=== PATIENT | female | born 1975 | race Caucasian/White ===

== ENCOUNTER 2022-02-12 08:01 | Outpatient (CLI) | payer OTHER ==
[~2022-02-12 08:01] MED LIST: GADOBUTROL 7.5 MMOL/7.5 ML VIAL ONE
[2022-02-12] MEDS ORDERED: GADOBUTROL 7.5 MMOL/7.5 ML VIAL IVP ONE (16:59)
--- NOTE | 2022-02-13 10:59 | MRI Report ---
PROCEDURE: Pelvis W/WO INDICATIONS: DISORDER OF UTERUS. Abnormal uterine bleeding. CONTRAST: IV CONTRAST: Gadavist ml: 6.2 TECHNIQUE: Coronal ultra fast SE, sagittal breath-hold T2 FSE; axial T1 FSE with and without fat saturation thro ugh the pelvis. Optional long- and short-axis uterine nonbreath-hold T2 FSE through the uterus. Sag ittal or axial dynamic ultra fast GE during administration of contrast. Post-contrast axial or coron al ultra fast GE / 2-D spoiled GE with fat saturation from the iliac crests to the symphysis. Option al diffusion weighted imaging and ADC may be performed. COMPARISON: None available. FINDINGS: Image quality: Excellent. Uterus: Uterus is anteverted and normal in size measuring 9.4 x 5.9 x 4.9 cm. Anterior mid subserosa l fibroid is suspected measuring 1.5 cm, (7/4). Endometrium is prominent measuring 1.4 cm. Junction al zone is normal in thickness at 12 mm or less. Adnexa: Both ovaries are normal in size, without suspicious cystic or solid lesions. Right ovarian h omogeneous T2 hyperintense cysts measuring 2.1 cm; and 0.9 cm. No suspicious enhancement. Urinary system: Bladder wall is normal in thickness. Distal ureters are non distended. Urethra dom ears normal in morphology. Nodes and vessels: No pelvic or inguinal adenopathy by size criteria. Iliac vessels are normal in s ize. Bowel and peritoneum: No pathologic free pelvic fluid. Inferior colon and small bowel loops are nor mal in caliber. Soft tissues: No inguinal hernias. No findings of pelvic floor incompetence in the absence of provo cation. Bones: Marrow demonstrates normal overall signal. Small right sacral Tarlov cysts. IMPRESSION: 1. Endometrium measures 1.4 cm and is prominent. 2. Suspect small anterior mid subserosal uterine fibroid measuring 1.5 cm. 3. Small benign right ovarian cyst. Reviewed by: Ozzie Huerta MD on 02/13/2022 10:57 AM PDT Approved by: Ozzie Huerta MD on 02/13/2022 10:57 AM PDT Station ID: [id number]
== END 2022-02-12 08:02 | disposition home or self-care (01) ==
LOC: DI 08:01
PROVIDERS: ATTEND Student in an Organized Health Care Education/Training Program
DX: N85.00 Endometrial hyperplasia, unspecified (principal); N83.201 Unspecified ovarian cyst, right side
CPT/HCPCS: 72197; A9585

== ENCOUNTER 2022-03-12 08:12 | Emergency (ER) | payer OTHER ==
[2022-03-12 08:23] VITALS: BP 129/80
--- NOTE | 2022-03-12 08:24 | ED Physician Documentation ---
PD HPI LOWER EXT INJURY - Stated complaint Stated Complaint: LT KNEE PX - Chief complaint Chief Complaint: Ext Problem - History obtained from History obtained from: Patient - History of Present Illness PD HPI LOW EXT INJURY LOCATION: Left, Knee Type of injury: No: Fall, Blunt / blow Timing - onset: Today Timing - details: Abrupt onset, Still present (She states she was fast walking for exercise and felt the abrupt onset of pain and giving out of her left knee along the medial aspect. Pain with walking now. No locking. Feels similar to prior meniscal injuries. Has also had ACL repair twice.) Worsened by: Moving, Palpating (medial aspect) Associated symptoms: Swelling (mild). No: Weakness, Numbness Similar symptoms before: Diagnosis (meniscal injuries in the past. ACL as well but felt different.) Recently seen: Not recently seen (prior Ortho surgeries were several years ago.) Review of Systems Skin: denies: Rash, Abrasion (s) Neurologic: denies: Focal weakness, Numbness PD PAST MEDICAL HISTORY - Past Medical History Cardiovascular: None Respiratory: None Musculoskeletal: None, Other (prior knee surgeries) - Present Medications Home Medications: Ambulatory Orders Medication Instructions Recorded Confirmed HYDROcod/ACETAM 5/325 [Sharon 5/325] 1 ea PO Q6H PRN #14 tablet 03/12/22 Ibuprofen [Motrin] 600 mg PO TID PRN #25 tab 03/12/22 Levothyroxine Sodium [Synthroid] 88 mcg PO DAILY 03/12/22 03/12/22 - Allergies Allergies/Adverse Reactions: Allergies Allergy/AdvReac Type Severity Reaction Status Date / Time No Known Drug Allergies Allergy Verified 03/12/22 08:19 PD ED PE NORMAL - Vitals Vital signs reviewed: Yes - General General: Alert and oriented X 3, No acute distress, Well developed/nourished - Derm Derm: Normal color, Warm and dry - Extremities Extremities: No calf tenderness / cord, Other (Left knee shows tenderness over the anterior aspect just suprapatellar but also along the medial joint line. There is no shifting of the tenderness some more suggestive of MCL. Pain with valgus stress. Some pain also with modified Apley. No clicking or popping. Good ROM passive without lock) - Neuro Neuro: Alert and oriented X 3, No motor deficit, No sensory deficit, Normal speech Results - Vitals Vitals: Vital Signs - 24 hr 03/12/22 08:20 Temperature 37.2 C Heart Rate 74 Respiratory 18 Rate Blood Pressure 129/80 O2 Saturation 99 Oxygen O2 Source Room air - Rads (name of study) left knee Radiology: Prelim report reviewed (arthritic and postsurgical changes. Small calcification back of knee could represent small loose body. ), See rad report PD MEDICAL DECISION MAKING - ED course Complexity details: reviewed results, considered differential (likely MCL strain but also consider medial meniscal injury. Loose body considered as well. Will give knee brace and crutches. To follow up with Ortho. ), d/w patient Departure - Departure Disposition: Home, Self Care Clinical Impression: Acute knee pain Qualifiers: Laterality: left Qualified Code(s): M25.562 - Pain in left knee Condition: Stable Record reviewed to determine appropriate education?: Yes Instructions: ED Meniscal Injury Knee Poss Follow-Up: GREGOR RAI MD [Primary Care Provider] - David Choi MD [Provider Admit Priv/Credential] - [facility] [Provider Group] Prescriptions: Ibuprofen [Motrin] 600 mg PO TID PRN #25 tab PRN Reason: Pain HYDROcod/ACETAM 5/325 [Sharon 5/325] 1 ea PO Q6H PRN #14 tablet PRN Reason: Pain Comments: The hardware from your prior surgeries appears in place. You do have spurs and arthritic changes in through the knee. No obvious loose bodies. I presume your symptoms sound likely to be a meniscal injury with some looseness. See how this improves over the next week or so with hinged knee brace and crutches for limited to no weightbearing. Ibuprofen 3 times a day with food. Add Tylenol or hydrocodone as needed for worse pains. I transmitted your prescriptions to the [facility]. Follow-up with your primary care or orthopedics, call today for an appointment for about a week from now. Return if worsening. My narcotic instructions I am prescribing a short course of narcotic pain medication for you. These are potentially dangerous and addictive medications that should be used carefully. These medications may constipate you. Take an gfng-exl-[id number] stool softener such as docusate twice daily with plenty of water while taking these medications. If you go 24 hours without a bowel movement, take [id number] MiraLAX, per package instructions. Do not drink or drive while taking these medications. If you received narcotic or sedating medications while in the emergency department do not drive for 24 hours. Store this medication in a safe, secure place and out of reach of children. It is a violation of federal law to give or sell this medication to another person or to use in a manner other than prescribed. The ED will not refill narcotic prescriptions, including prescriptions lost or stolen. You can dispose of unwanted medications at the [facility]'s office or at several pharmacies such as [facility]. Forms: Activity restrictions Discharge Date/Time: 03/12/22 10:33
[2022-03-12] MEDS ORDERED: IBUPROFEN 600 MG TABLET PO STA (08:39)
[2022-03-12] MEDS ORDERED: ACETAMINOPHEN 325 MG TABLET PO STA (08:39)
--- NOTE | 2022-03-12 09:23 | XRAY Report ---
PROCEDURE: Knee 4 View LT INDICATIONS: Trauma TECHNIQUE: 3 views of the left knee(s) were acquired. COMPARISON: None. FINDINGS: Bones: No fractures or dislocations. No suspicious bony lesions. There is a screw within the dista l femur as well as a tendon anchor at the lateral femoral condyle. Moderate tricompartmental periarti cular osteophyte formation is present. Soft tissues: No joint effusion. Amorphous calcification within the soft tissues of the posterior as pect of the knee joint is present. IMPRESSION: 1. Postsurgical sequelae. 2. Calcification at the posterior aspect of the knee, possibly indicating vascular calcification, or intra-articular loose body, which could be further assessed with MRI, if clinically indicated. 3. Osteoarthritis. 4. No acute fracture. No osseous lesion. If symptoms and/or clinical suspicion for pathology continue , further assessment with repeat plain films, or advanced imaging (e.g., CT, MRI, or bone scan) is re commended for further assessment. Reviewed by: Rimma Tolliver MD on 03/12/2022 9:22 AM PDT Approved by: Rimma Tolliver MD on 03/12/2022 9:22 AM PDT Station ID: [id number]
== END 2022-03-12 10:33 | disposition home or self-care (01) ==
LOC: ED 08:12
DX: M25.562 Pain in left knee (principal)
CPT/HCPCS: 73564; 99282; 99283; A9270

== ENCOUNTER 2022-03-27 08:00 | Outpatient (CLI) | payer OTHER ==
--- NOTE | 2022-03-27 16:06 | XRAY Report ---
PROCEDURE: Knee 3 View LT INDICATIONS: LEFT KNEE PAIN TECHNIQUE: 3 views of the left knee and one view of the right knee were acquired. COMPARISON: Left knee radiographs 03/12/2022. FINDINGS: Bones: Postsurgical changes are seen from anterior cruciate ligament reconstruction with an addition al metallic screw at the lateral femoral metaphysis. No acute fractures or dislocations. No suspicio us bony lesions. Small likely heterotopic ossification again seen at the lateral femoral metaphysis. Tricompartmental marginal osteophytes and mild joint space narrowing are seen. Soft tissues: Small joint effusion. Nonspecific calcification is seen projecting over the posterior m edial knee, possibly within a medial popliteal cyst. IMPRESSION: 1.Stable postsurgical changes in the left knee. No acute osseous abnormality. MRI could be performed for further evaluation if symptoms persist or there is continued clinical concern. 2.Mild to moderate compartment osteoarthrosis. Reviewed by: Clive Singh MD on 03/27/2022 4:05 PM PDT Approved by: Clive Singh MD on 03/27/2022 4:05 PM PDT Station ID: [id number]
== END 2022-03-27 23:59 | disposition home or self-care (01) ==
LOC: DI.WOS 08:00
PROVIDERS: ATTEND Physician Assistant Surgical
DX: M17.12 Unilateral primary osteoarthritis, left knee (principal)

== ENCOUNTER 2023-02-19 10:45 | Outpatient (CLI) | payer OTHER ==
--- NOTE | 2023-02-19 12:54 | XRAY Report ---
PROCEDURE: Lumbar Spine 2 View INDICATIONS: LOW BACK PAIN ACUTE TECHNIQUE: 3 views of the lumbar spine were acquired. COMPARISON: None FINDINGS: Bones: 5 dfo-hqr-cmieolm vertebrae are present. There is normal bony alignment. No vertebral body compression fractures. No suspicious bony lesions. Minimal early degenerative changes most notable at L5-S1 disc and foraminal narrowing. Soft tissues: Overlying bowel gas pattern is normal. No suspicious soft tissue calcifications. IMPRESSION: No visualized acute fracture or dislocation. However, occult injury cannot be excluded. Recommend short interval imaging follow-up in 7-10 days as clinically indicated for additional evalua tion. Reviewed by: Nory Holm MD on 02/19/2023 12:52 PM PDT Approved by: Nory Holm MD on 02/19/2023 12:52 PM PDT Station ID: [id number]
== END 2023-02-19 11:00 | disposition home or self-care (01) ==
LOC: DI.N 10:45
PROVIDERS: ATTEND Family Medicine
DX: M54.59 Other low back pain (principal)